=== PATIENT | male | born 1995 | race Caucasian/White ===

== ENCOUNTER 2017-02-21 19:47 | Emergency (ER) | payer OTHER ==
[2017-02-21 20:16] VITALS: BP 134/73
--- NOTE | 2017-02-21 20:28 | ED Physician Documentation ---
Lower Extremity Injury - HISTORIAN Historian: patient - HPI Stated Complaint: lt ankle injury Chief Complaint: Lower Extremity Injury Additional Information: left ankle edema and pain Onset: minutes Severity: moderate Context: fall, twist Associated Symptoms:: swelling, snapping sensation, popping sensation, unable to bear weight Modifying Factors:: pain on movement - ROS CONST: no problems CVS/RESP: none GI/: denies: problems urinating, nausea, vomiting, other MS/SKIN/LYMPH: none NEURO: denies: headache - PAST HX Past History: none Allergies/Adverse Reactions: Allergies Allergy/AdvReac Type Severity Reaction Status Date / Time No Known Allergies Allergy Verified 10/27/15 14:31 Home Medications: Ambulatory Orders Medication Instructions Recorded Ketorolac Tromethamine [Toradol] 10 mg PO TID #15 tablet 02/21/17 - SOCIAL HX Smoking History: non-smoker - FAMILY HX Family History: denies: none - VITAL SIGNS Vital Signs: Vital Signs Temp Pulse Resp BP Pulse Ox 98 F 72 14 134/73 98 02/21/17 19:52 02/21/17 21:00 02/21/17 21:00 02/21/17 21:00 02/21/17 21:00 - REVIEWED ASSESSMENTS Nursing Assessment Reviewed: Yes Vitals Reviewed: Yes ED Results Lab/Radiology - Radiology Radiology Impressions: Left ankle, 3 views History: Pain, fall. Findings: The osseous structures are intact without acute fracture. The joint space and alignment are normal. Minimal lateral ankle soft tissue swelling is suggested. Impression: 1. No acute osseous abnormality. 2. Minimal lateral ankle soft tissue swelling. Electronically signed on Feb 21, 2017 8:17:55 PM CDT by: Sam Prabhakar - Orders Orders: ED Orders Category Date Time Status Wyatt Wrap Affected Extremity 1T Care 02/21/17 20:29 Active ANKLE 3 VIEWS OR MORE [RAD] Stat Exams 02/21/17 Taken Ketorolac Tromethamine [Toradol] Med 02/21/17 20:29 Discontinued 60 mg IM NOW ONE Lower Extremities Injury Phy - Physical Exam General Appearance: mild distress Hips: bilateral hip: non-tender, normal inspection, normal range of motion, no evidence of injury Legs: bilateral: non-tender, normal inspection, normal range of motion, no evidence of injury Knees: bilateral: non-tender, normal inspection, normal range of motion, no evidence of injury Ankle: right: non-tender, normal inspection, normal range of motion, no evidence of injury, left: bone tenderness, pain, soft tissue tenderness, swelling Foot: bilateral foot: non-tender, normal inspection, normal range of motion, no evidence of injury Gait: unable to bear weight Neuro/Vascular/Tendon: no vascular compromise, motor nml, sensation nml, ROM nml Resp/CVS: chest non-tender, breath sounds nml, no resp. distress, reg. rate & rhythm Discharge Clincal Impression: Left ankle sprain Qualifiers: Encounter type: initial encounter Involved ligament of ankle: unspecified ligament Qualified Code(s): S93.402A - Sprain of unspecified ligament of left ankle, initial encounter Prescriptions: Ketorolac Tromethamine [Toradol] 10 mg PO TID #15 tablet Referrals: Primary Doctor,No [Primary Care Provider] - 2 Days Additional Instructions: Ice Rest Elevation Compression - wyatt Ankle exercise to increase ROM - write with great toe all the alphabet A-Z, numbers 1-10 with If you are unable to bear weight and continuing to have signficant pain on day 3 -4; see your PCP for re-evaluation and additional xrays. You may use Tylenol every 4hour as needed for pain. Limit your dose to less than 4 G per day. Do not take ibuprofen, aleve, naproxen or any other NSAID while you are on toradol. Home Medications: Ambulatory Orders Ketorolac Tromethamine [Toradol] 10 mg PO TID #15 tablet 02/21/17 Condition: Stable Disposition: 01 HOME, SELF-CARE Decision to Admit: NO Decision Time: 20:30
[2017-02-21] MEDS: KETOROLAC TROMETHAMINE 60 MG/2 ML VIAL IM ONE (20:41)
--- NOTE | 2017-02-22 06:56 | Diagnostic Imaging Report ---
DEB CAPPS (LILLIANA) - ER [facility] [address] [facility].[address] [address] Report Submission Date: Feb 21, 2017 8:17:55 PM CDT Patient Study Name: REED LARRY Date: Feb 21, 2017 8:05:30 PM CDT Modality Type: CR Gender: M Description: LOWER EXTREMITY : 89 Institution: [facility] Physician: DEB CAPPS) - ER Left ankle, 3 views History: Pain, fall. Findings: The osseous structures are intact without acute fracture. The joint space and alignment are normal. Minimal lateral ankle soft tissue swelling is suggested. Impression: 1. No acute osseous abnormality. 2. Minimal lateral ankle soft tissue swelling. Electronically signed on Feb 21, 2017 8:17:55 PM CDT by: Sam LOPEZ
== END 2017-02-21 20:51 | disposition home or self-care (01) ==
LOC: ED 19:47
DX: S93.402A Sprain of unspecified ligament of left ankle, initial encounter (principal); X58.XXXA Exposure to other specified factors, initial encounter; Y93.9 Activity, unspecified; Y99.9 Unspecified external cause status
CPT/HCPCS: 73610; J1885; 96372; 99283